=== PATIENT | female | born 1995 | race Two or more races ===

== ENCOUNTER 2019-06-25 18:50 | Emergency (ER) | payer MEDICAID ==
[~2019-06-25] VITALS: Ht 154.9 cm; Wt 88.0 kg
[2019-06-25 19:22] VITALS: BP 122/63
== END 2019-06-25 22:02 | disposition left against medical advice (07) ==
LOC: ER 19:49
DX: R06.02 Shortness of breath (principal); Z53.21 Procedure and treatment not carried out due to patient leaving prior to being seen by health care provider